=== PATIENT | female | born 1980 | race Caucasian/White ===

== ENCOUNTER 2018-02-01 07:04 | Day surgery (SDC) | END 2018-02-01 13:00 | disposition home or self-care (01) ==

== ENCOUNTER 2019-04-05 21:41 | Emergency (ER) | payer OTHER ==
[~2019-04-05] VITALS: Ht 172.7 cm; Wt 65.9 kg
[2019-04-05 21:50] VITALS: Ht 172.7 cm; Wt 65.9 kg
[2019-04-05 23:36] VITALS: BP 118/91; PULSE 73; RESP 16
== END 2019-04-05 23:39 | disposition home or self-care (01) ==
LOC: E/R 21:41
DX: R42 Dizziness and giddiness (principal); I49.3 Ventricular premature depolarization
CPT/HCPCS: 80048; 81025; 85025; 93005; Z7502